=== PATIENT | female | born 2000 | race Asian ===

== ENCOUNTER 2023-02-01 18:03 | Emergency (ER) | payer OTHER ==
[~2023-02-01] VITALS: Ht 157.5 cm; Wt 61.2 kg
[2023-02-01 18:12] VITALS: BP_SYST 129
--- NOTE | 2023-02-01 19:30 | NUR ---
Patient to ER bed 1 to gown for evaluation. Side rails up.
--- NOTE | 2023-02-01 19:31 | NUR ---
ER at bedside examining patient.
--- NOTE | 2023-02-01 19:32 | NUR ---
PATIETN BROUGHT IN COMPLAINING OF RECTAL BLEEDING WITH LOWER ABDOMINAL PAIN. PAIN 2/10. DENIES ANY OTHER COMPLAINTS/INJURIES PER PATIENT OR NOTED.
[2023-02-01 19:35] VITALS: BP_SYST 122
--- NOTE | 2023-02-01 19:35 | NUR ---
Patient given written and verbal discharge instructions and verbalizes understanding. ER MD discussed with patient the results and treatment provided. Patient in stable condition. ID arm band removed. Patient educated on pain management and to follow up with PMD. Pain Scale 0/10 Opportunity for questions provided and answered.
== END 2023-02-01 19:35 | disposition home or self-care (01) ==
LOC: SED 18:03
DX: K60.2 Anal fissure, unspecified (principal); K62.5 Hemorrhage of anus and rectum; Z79.899 Other long term (current) drug therapy
CPT/HCPCS: 96365; 96375; 99281; 99291